=== PATIENT | female | born 2000 | race Caucasian/White ===

== ENCOUNTER 2024-06-25 14:48 | Outpatient (REF) | payer BC, SELFPAY ==
[2024-06-25 15:05] LABS: Abs Immature Grans 0.03 10^3/uL (0.0-0.06); Absolute Eosinophil Count 0.54 10^3/uL (0.0-0.7); Absolute Lymphocyte Count 1.76 10^3/uL (1.2-3.4); Absolute Monocyte Count 0.39 10^3/uL (0.1-0.8); Absolute Neutrophil Count 3.82 10^3/uL (1.2-6.7); Basophils % 1.5 %; Eosinophils % 8.1 %; HCT 45.4 % (36.0-46.0); HGB 14.8 g/dL (11.2-15.7); Immature Grans % 0.5 %; Lymphocytes % 26.5 %; MCH 28.6 pg (27.0-33.0); MCHC 32.6 % (32.0-36.0); MCV 88 fL (80-95); MPV 11.8 fL (8.0-11.0); Monocytes % 5.9 %; Neutrophils % 57.5 %; Platelet Count 255 10^3/uL (130-400); RBC 5.18 10^6/uL (3.93-5.22); RDW 12.6 % (11.7-14.6); RDW-SD 40.5 fL; WBC 6.64 10^3/uL (4.4-10.8)
[2024-06-25 15:48] LABS: Anion Gap 9.4 mmol/L (3-11); BUN 7 mg/dL (7-18); CO2 28.6 mmol/L (21.0-32.0); CREATININE 0.7 mg/dL (0.55-1.02); Chloride 104 mmol/L (98-107); Estimated GFR 123.78 (mL/min/1.73m2); Ferritin 99 ng/mL (8-252); Glucose 79 mg/dL (74-106); Magnesium 2.1 mg/dL (1.8-2.4); Potassium 4.8 mmol/L (3.5-5.1); Sodium 142 mmol/L (136-145); TSH 0.99 uIU/mL (0.36-3.74)
[2024-06-25 16:17] LABS: FREE T4 0.91 ng/dL (0.76-1.46)
[2024-06-25 17:01] LABS: Iron 78 ug/dL (50-170); Total Iron Binding Capacity 304 ug/dL (250-450); Transferrin Sat 26 % (15-50)
[2024-06-25 22:05] LABS: T3,Free 3.5 pg/mL (2.8-5.3)
== END 2024-06-25 14:49 | disposition home or self-care (01) ==
LOC: NCHCN 14:48
PROVIDERS: Visit Provider Nurse Practitioner Family
DX: F41.9 Anxiety disorder, unspecified (principal); R77.8 Other specified abnormalities of plasma proteins
CPT/HCPCS: 80048; 82728; 83540; 83550; 83735; 84439; 84443; 84481; 85025

== ENCOUNTER 2024-07-23 15:24 | Outpatient (REF) | payer BC, SELFPAY | END 2024-07-23 15:25 | disposition home or self-care (01) | LOC: NCHCN 15:24 | PROVIDERS: Visit Provider Nurse Practitioner Family | DX: N30.10 Interstitial cystitis (chronic) without hematuria (principal) | CPT/HCPCS: 87077; 87086; 87186 ==

== ENCOUNTER 2024-08-03 16:44 | Outpatient (REF) | payer BC, SELFPAY | END 2024-08-03 16:45 | disposition home or self-care (01) | LOC: NCHCN 16:44 | PROVIDERS: Visit Provider Nurse Practitioner Family | DX: N39.0 Urinary tract infection, site not specified (principal); R82.89 Other abnormal findings on cytological and histological examination of urine | CPT/HCPCS: 87086 ==

== ENCOUNTER 2024-08-07 12:55 | Outpatient (REF) | payer BC, SELFPAY | END 2024-08-07 12:56 | disposition home or self-care (01) | LOC: NCHCN 12:55 | PROVIDERS: PCP Nurse Practitioner Family; Visit Provider Nurse Practitioner Family | DX: N39.0 Urinary tract infection, site not specified (principal) | CPT/HCPCS: 87086; 87480; 87510; 87660 ==

== ENCOUNTER 2024-10-05 18:07 | Outpatient (REF) | payer BC, SELFPAY ==
[2024-10-07 13:07] LABS: Bacterial Vaginosis (BV) Positive (Negative); Candida glabrata Negative (Negative); Candida species group Positive (Negative); Chlamydia Result Negative (Negative); GC Result Negative (Negative); Trichomonas vaginalis Negative (Negative)
== END 2024-10-05 18:08 | disposition home or self-care (01) ==
LOC: NCHCN 18:07
PROVIDERS: PCP Nurse Practitioner Family; Visit Provider Family Medicine
DX: N89.8 Other specified noninflammatory disorders of vagina (principal)
CPT/HCPCS: 81513; 87481; 87491; 87591; 87661